=== PATIENT | male | born 1990 | race Caucasian/White ===

== ENCOUNTER 2023-04-30 15:35 | Inpatient (IN) | payer MEDICAID ==
[~2023-04-30] VITALS: Ht 177.8 cm; Wt 74.0 kg
[2023-04-30 16:21] LABS: COVID AG,FIA SOURCE NASAL SWAB
[2023-04-30 16:30] LABS: BASOPHILS % (AUTO) 0.2 % (0.0-2.0); HEMATOCRIT 38.6 % (41-53); HEMOGLOBIN 13.6 g/dL (13.5-17.5); LYMPHOCYTES # (AUTO) 1.1 K/uL (1.0-4.8); LYMPHOCYTES % (AUTO) 15.1 % (22.0-44.0); MEAN CORPUSCULAR HEMOGLOBIN 30.8 pg (26.0-34.0); MEAN CORPUSCULAR HGB CONC 35.1 G/dL (31.0-37.0); MEAN CORPUSCULAR VOLUME 88 fL (80-100); MONOCYTES # (AUTO) 0.5 K/uL (0.1-1.0); MONOCYTES % (AUTO) 6.8 % (2.0-9.0); NEUTROPHILS # (AUTO) 5.7 K/uL (1.8-7.7); NEUTROPHILS % (AUTO) 76.9 % (40.0-70.0); PLATELET COUNT (AUTO) 227 K/uL (150-450); RED BLOOD CELL COUNT(AUTO) 4.41 MIL/uL (4.50-5.90); RED CELL DISTRIBUTION WIDTH 12.2 % (11.5-14.5); WHITE BLOOD COUNT (AUTO) 7.4 K/uL (4.5-11.0)
[2023-04-30] MEDS ORDERED: LORazepam 1 MG TABLET PO PRN (16:45)
[2023-04-30] MEDS ORDERED: ZOLPIDEM TARTRATE 10 MG TABLET PO PRN (16:45)
[2023-04-30] MEDS ORDERED: OLANZapine 5 MG RAPDIS TABLET PO PRN (16:45)
[2023-04-30 16:57] LABS: SARS-COV2 (COVID) ANTIGEN,FIA Negative (Negative)
[2023-04-30 17:12] LABS: ANION GAP 10 mmol/L (8-16); CALCIUM, TOTAL 9.3 mg/dL (8.8-10.5); CARBON DIOXIDE 29 mmol/L (22-29); CHLORIDE 107 mmol/L (98-107); CREATININE 0.89 mg/dL (0.60-1.30); GLOMERULAR FILTR. RATE CALC > 60 mL/min (>60); GLUCOSE,RANDOM 96 mg/dL (70-110); POTASSIUM 3.8 mmol/L (3.5-5.1); SODIUM SERUM 146 mmol/L (136-145); UREA NITROGEN, BLOOD 13 mg/dL (7-18)
[2023-04-30 17:16] LABS: ALCOHOL, BLOOD (SERUM) < 3 mg/dL (0-10)
[2023-04-30 17:17] LABS: ALANINE AMINOTRANSFERASE 20 U/L (12-78); ALBUMIN 4.1 g/dL (3.4-5.0); ALKALINE PHOSPHATASE 62 U/L (46-116); ASPARTATE AMINOTRANSFERASE 17 U/L (15-37); BILIRUBIN,TOTAL 0.3 mg/dL (0.1-1.0); TOTAL PROTEIN, SERUM 7.3 g/dL (6.4-8.2)
[2023-04-30 17:22] LABS: APPEARANCE,URINE CLEAR (CLEAR); BILIRUBIN,URINE NEGATIVE (NEGATIVE); COLOR,URINE LIGHT YELLOW (YELLOW); GLUCOSE, URINE (UA) NEGATIVE (NEGATIVE); KETONES,URINE NEGATIVE (NEGATIVE); LEUKOCYTE ESTERASE ,URINE NEGATIVE (NEGATIVE); NITRATE,URINE NEGATIVE (NEGATIVE); OCCULT BLOOD,URINE NEGATIVE (NEGATIVE); PROTEIN,URINE NEGATIVE (NEGATIVE); UROBILINOGEN,URINE <=1.0 mg/dL (<=1.0)
[2023-04-30 17:27] LABS: AMPHET/METH SCREEN,URINE NEGATIVE (NEGATIVE); BARBITURATE SCREEN, URINE NEGATIVE (NEGATIVE); BENZODIAZEPINES SCREEN,URINE NEGATIVE (NEGATIVE); CANNABINOID SCREEN,URINE NEGATIVE (NEGATIVE); COCAINE SCREEN,URINE NEGATIVE (NEGATIVE); METHADONE SCREEN, URINE NEGATIVE (NEGATIVE); OPIATE SCREEN,URINE NEGATIVE (NEGATIVE); PHENCYCLIDINE SCREEN,URINE NEGATIVE (NEGATIVE)
[2023-04-30 17:37] LABS: ALCOHOL, URINE DRUG SCREEN NEGATIVE (NEGATIVE)
[2023-04-30 21:00] VITALS: BP 129/72; PULSE 58; RESP 18; TEMP 97.6; O2SAT 100
[2023-04-30] MEDS: MIRTAZAPINE 15 MG TABLET PO SCH (22:51)
[2023-05-01] MEDS ORDERED: BACITRACIN 28 GM OINTMENT TP PRN ×2 (06:15→07:45)
[2023-05-01] MEDS ORDERED: CloNIDine HCL 0.1 MG TABLET PO PRN ×2 (06:15→07:45)
[2023-05-01] MEDS ORDERED: MAG HYDROX/ALUMINUM HYD/SIMETH ES 30 ML SUSPENSION UDCUP PO PRN ×2 (06:15→07:45)
[2023-05-01] MEDS ORDERED: IBUPROFEN 600 MG TABLET PO PRN ×2 (06:15→07:45)
[2023-05-01] MEDS ORDERED: ALBUTEROL SULFATE HFA 90 MCG/PUFF 8 GM INHALER IH PRN ×2 (06:15→07:45)
[2023-05-01] MEDS ORDERED: DOCUSATE SODIUM 100 MG CAPSULE PO PRN ×2 (06:15→07:45)
[2023-05-01] MEDS ORDERED: ONDANSETRON HCL 4 MG TABLET PO PRN ×2 (06:15→07:45)
[2023-05-01] MEDS ORDERED: ACETAMINOPHEN 325 MG TABLET PO PRN ×2 (06:15→07:45)
[2023-05-01] MEDS ORDERED: MAGNESIUM HYDROXIDE SUSPENSION 30 ML UDCUP PO PRN ×2 (06:15→07:45)
[2023-05-01] MEDS ORDERED: LOPERAMIDE HCL 2 MG CAPSULE PO PRN ×2 (06:15→07:45)
[2023-05-01] MEDS ORDERED: PETROLATUM,WHITE 28 GM JELLY TP PRN ×2 (06:15→07:45)
[2023-05-01] MEDS ORDERED: BENZOCAINE/MENTHOL LOZENGE PO PRN ×2 (06:15→07:45)
[2023-05-01] MEDS ORDERED: OMEPRAZOLE 20 MG CAPSULE PO PRN ×2 (06:15→07:45)
[2023-05-01 08:37] VITALS: BP 107/72; PULSE 58; RESP 19; TEMP 98; O2SAT 100
[2023-05-01] MEDS: OLANZapine 5 MG TABLET PO SCH ×2 (09:20→20:54)
[2023-05-01] MEDS: MIRTAZAPINE 15 MG TABLET PO SCH (20:54)
[2023-05-01 21:03] VITALS: BP 114/71; PULSE 86; RESP 18; TEMP 97.2; O2SAT 100
[2023-05-02] MEDS: OLANZapine 5 MG TABLET PO SCH ×2 (08:08→20:56)
[2023-05-02] MEDS: NICOTINE 21 MG/24 HOUR PATCH TD SCH (08:09)
[2023-05-02 09:06] VITALS: BP 139/88; PULSE 64; RESP 18; TEMP 97.5; O2SAT 100
[2023-05-02 09:11] VITALS: BP 139/88; PULSE 64; RESP 18; TEMP 97.5; O2SAT 100
[2023-05-02] MEDS: MIRTAZAPINE 15 MG TABLET PO SCH (20:56)
[2023-05-02 21:21] VITALS: BP 108/72; PULSE 74; RESP 18; TEMP 97.1; O2SAT 98
[2023-05-03] MEDS: OLANZapine 5 MG TABLET PO SCH ×2 (08:22→21:30)
[2023-05-03] MEDS: NICOTINE 21 MG/24 HOUR PATCH TD SCH (08:24)
[2023-05-03 10:50] VITALS: BP 130/77; PULSE 79; RESP 18; TEMP 97.6; O2SAT 79
[2023-05-03 20:57] VITALS: BP 145/89; PULSE 84; RESP 19; TEMP 97.5; O2SAT 98
[2023-05-03] MEDS: MIRTAZAPINE 15 MG TABLET PO SCH (21:30)
[2023-05-04] MEDS: OLANZapine 5 MG TABLET PO SCH ×2 (08:43→21:04)
[2023-05-04] MEDS: NICOTINE 21 MG/24 HOUR PATCH TD SCH (08:45)
[2023-05-04 08:46] VITALS: BP 136/87; PULSE 79; RESP 18; TEMP 97.4; O2SAT 100
[2023-05-04] MEDS: MIRTAZAPINE 15 MG TABLET PO SCH (21:04)
[2023-05-04 21:19] VITALS: BP 121/73; PULSE 68; RESP 19; TEMP 98.7; O2SAT 95
[2023-05-04 21:53] VITALS: BP 121/75; PULSE 74; RESP 19; TEMP 98.7; O2SAT 94
[2023-05-05] MEDS: OLANZapine 5 MG TABLET PO SCH ×2 (08:59→20:31)
[2023-05-05] MEDS: NICOTINE 21 MG/24 HOUR PATCH TD SCH (08:59)
[2023-05-05 10:34] VITALS: BP 129/89; PULSE 76; RESP 18; TEMP 98.9; O2SAT 100
[2023-05-05] MEDS: MIRTAZAPINE 15 MG TABLET PO SCH (20:31)
[2023-05-05 22:20] VITALS: BP 122/78; PULSE 73; RESP 18; TEMP 97.8; O2SAT 98
[2023-05-05 22:32] VITALS: BP 122/78; PULSE 73; RESP 19; TEMP 97.8; O2SAT 98
[2023-05-06] MEDS: OLANZapine 5 MG TABLET PO SCH ×2 (09:12→20:58)
[2023-05-06 10:46] VITALS: BP 151/91; PULSE 66; RESP 18; TEMP 97.4; O2SAT 98
[2023-05-06] MEDS: NICOTINE 21 MG/24 HOUR PATCH TD SCH (10:54)
[2023-05-06 20:45] VITALS: BP 115/74; PULSE 79; RESP 18; TEMP 97.2; O2SAT 97
[2023-05-06] MEDS: MIRTAZAPINE 15 MG TABLET PO SCH (20:58)
[2023-05-07] MEDS: OLANZapine 5 MG TABLET PO SCH (09:03)
[2023-05-07 09:04] VITALS: BP 146/91; PULSE 76; RESP 18; TEMP 97.8; O2SAT 98
[2023-05-07] MEDS: NICOTINE 21 MG/24 HOUR PATCH TD SCH (09:05)
[2023-05-07] MEDS ORDERED: OLAN5TAB52 PO (15:13)
[2023-05-07] MEDS ORDERED: MIRT-89 PO (15:13)
[2023-05-07] MEDS ORDERED: OMEG-135 PO (15:13)
[2023-05-07] MEDS ORDERED: NALT50TA PO (15:13)
[2023-05-07] MEDS ORDERED: NALT50TA33 PO (15:13)
== END 2023-05-07 17:20 | disposition home or self-care (01) | DRG 753 ==
LOC: EMS 15:38 → 3EI 16:36
PROVIDERS: ADMIT Psychiatry & Neurology Psychiatry; ATTEND Psychiatry & Neurology Psychiatry
PROC: GZHZZZZ Group Psychotherapy (ICD-10-PCS; principal; 2023-05-01)
PROC: GZ56ZZZ Individual Psychotherapy, Supportive (ICD-10-PCS; 2023-05-01)
DX: F31.9 Bipolar disorder, unspecified (principal); R45.851 Suicidal ideations; F20.9 Schizophrenia, unspecified; F41.9 Anxiety disorder, unspecified; G47.00 Insomnia, unspecified; I10 Essential (primary) hypertension; Z20.822 Contact with and (suspected) exposure to COVID-19; Y90.9 Presence of alcohol in blood, level not specified; F06.30 Mood disorder due to known physiological condition, unspecified; F12.10 Cannabis abuse, uncomplicated; F11.10 Opioid abuse, uncomplicated; F10.20 Alcohol dependence, uncomplicated; K59.00 Constipation, unspecified; Z55.9 Problems related to education and literacy, unspecified; Z59.01 Sheltered homelessness; Z63.9 Problem related to primary support group, unspecified; Z65.3 Problems related to other legal circumstances; Z81.8 Family history of other mental and behavioral disorders; Z87.891 Personal history of nicotine dependence
CPT/HCPCS: 80053; 80307; 81003; 85025; 99285; G0480